=== PATIENT | male | born 1955 | race Caucasian/White ===

== ENCOUNTER 2020-10-27 04:11 | Day surgery (SDC) | payer OTHER ==
[2020-10-26 09:13] VITALS: BMI 35.2
[2020-10-27 08:01] VITALS: TEMP 97.8
[2020-10-27] MEDS ORDERED: MIDAZOLAM HCL 2 MG/2 ML SINGLE DOSE VIAL ONE (09:12)
[2020-10-27] MEDS ORDERED: KETAMINE HCL 200 MG/20 ML VIAL ONE (09:12)
[2020-10-27] MEDS ORDERED: ceFAZolin SODIUM 1 GM VIAL IVPB ONE (09:15)
[2020-10-27 12:44] VITALS: BP 120/62; PULSE 90
== END 2020-10-27 12:00 | disposition home or self-care (01) ==
LOC: JASU-SURG 04:11
PROVIDERS: ATTEND Urology
PROC: 0TF4XZZ Fragmentation in Left Kidney Pelvis, External Approach (ICD-10-PCS; principal; 2020-10-27 09:00)
DX: N20.0 Calculus of kidney (principal)